=== PATIENT | male | born 1955 ===

== ENCOUNTER 2024-10-10 15:30 | Outpatient (CLI) | payer MEDICARE, SELFPAY ==
--- NOTE | ~2024-10-10 | US_ITS ---
EXAM: RENAL ULTRASOUND HISTORY: SERUM CREATINE ABOVE REFERENCE RANGE COMPARISON: None FINDINGS: RIGHT KIDNEY: 9.9 x 4.3 x 5.7 cm. No hydronephrosis or bulky renal calculi. LEFT KIDNEY: 10.4 x 5.6 x 5.4 cm No hydronephrosis or renal calculi. BLADDER: The bladder is adequately distended. Multiple echogenic foci along the posterior wall bladder, possibly debris versus stones. IMPRESSION: No hydronephrosis or renal calculi. No sonographic findings suggesting medical renal disease. Reviewed, dictated and finalized at location A. OPERATIONS MANAGER
== END 2024-10-10 15:31 | disposition home or self-care (01) ==
LOC: MICIMG 15:31
PROVIDERS: PCP Internal Medicine Infectious Disease; Visit Provider Internal Medicine Infectious Disease
DX: R79.89 Other specified abnormal findings of blood chemistry (principal)
CPT/HCPCS: 76775